=== PATIENT | female | born 1990 | race Caucasian/White ===

== ENCOUNTER 2024-11-13 12:13 | Emergency (ER) | payer MEDICAID, SELFPAY ==
[2024-11-13 12:14] VITALS: BP 128/90; PULSE 60; RESP 14; TEMP 36.4; O2SAT 98; BMI 19.3
[2024-11-13 13:00] VITALS: BP 119/101; PULSE 87; RESP 18; O2SAT 100
--- NOTE | 2024-11-13 13:12 | CT_ITS ---
EXAM: CT NECK WITH INTRAVENOUS CONTRAST CLINICAL INDICATION: Dysphagia TECHNIQUE: Helically acquired images were obtained of the neck with intravenous contrast. This CT exam was performed using one or more of the following dose reduction techniques: automated exposure control, adjustment of the mA and/or kV according to patient size, and/or use of iterative reconstruction technique. CONTRAST: IV 75mL [id number] COMPARISON: No relevant prior studies available. FINDINGS: NASOPHARYNX: Normal. SUPRAHYOID NECK: Mild tonsillar enlargement. No evidence of tonsillar abscess. INFRAHYOID NECK: Normal. The larynx, hypopharynx and supraglottis are unremarkable. SUBMANDIBULAR/PAROTID GLANDS: Salivary glands are normal in size. THYROID: Normal. No thyroid nodules or calcification. BONES/JOINTS: No suspicious lytic or blastic abnormality. SOFT TISSUES: Normal. VASCULATURE: No acute findings. LYMPH NODES: Normal. No lymphadenopathy. LUNG APICES: Unremarkable as visualized. CT/Soft Tissue Neck WITH Contrast IMPRESSION: Mild tonsillar enlargement. No evidence of tonsillar abscess. Electronically Signed: Mason Kennedy MD at 14:22 EST ,
--- NOTE | 2024-11-13 13:12 | EX.ED.DYSGE1 ---
HPI History of Present Illness Chief Complaint: Shortness of Breath Informant: patient Onset/Context/Timing Onset: Weeks (2) Context: Gradual Onset Timing: Continuous Quality: Like something is stuck in my throat Location: Throat Worsened by: Nothing Relieved by: Nothing Narrative Narrative: Patient presents with difficulty swallowing, cough, and sore throat. Patient states this has been getting worse over the past few weeks. Patient states he feels like there is something stuck in her throat. Patient states she has a history of a cyst on her thyroid. Patient states her primary care physician referred to the emergency department for further evaluation. Patient admits to a cough but denies any sputum production. Patient denies any fevers or chills. Patient admits to some nausea but denies any vomiting. Patient states she has a history of asthma but ran out of her inhaler. [facility] Medical History (Updated 11/13/24 @ 15:[address] Clifton Rogers, DO) Cyst of parathyroid Home Medications ?Medication ?Instructions ?Recorded ?Last Taken ?Type NK 11/13/24 Unknown History Allergy/AdvReac Type Severity Reaction Status Date / Time Sulfa (Sulfonamide Allergy Rash Verified 11/13/24 12:15 Antibiotics) Surgical History (Updated 11/13/24 @ 15:[address] Clifton Rogers, ) History of thoracic surgery Social History Smoking Status: Current every day smoker tobacco type: cigarettes ROS ROS ED Constitutional Constitutional ED: Denies chills or fever(s) Eyes Eyes: Denies blurry vision or change in vision ENT ENT ED: Reports sore throat; Denies rhinorrhea Cardiovascular Cardiovascular: Denies chest pain or palpitations Respiratory/Chest Respiratory/Chest: Denies cough or dyspnea Gastrointestinal Gastrointestinal: Reports nausea; Denies vomiting Genitourinary Genitourinary ED: Reports urinary frequency; Denies dysuria or hematuria Musculoskeletal Musculoskeletal: Denies back pain or neck pain Integumentary Denies abscess or rash Neurologic Neurologic: Reports headache(s); Denies weakness Allergic/Immunologic Allergic/Immunologic ED: Denies mouth swelling or urticaria EXAM Physical Exam Const Vital Signs: 11/13/24 12:14 11/13/24 12:24 Temperature 97.6 F L Temperature Source Temporal Pulse Rate 60 Respiratory Rate 14 Respiratory Effort Normal Non-Labored Respiratory Depth Normal Respiratory Pattern Normal Blood Pressure 128/90 H Blood Pressure Mean 102 Pulse Ox 98 Oxygen Delivery Method Room Air Positive well nourished and well developed General Appearance ED: well developed and NAD HEENT Reports moist mucous membranes HEENT Narrative: Oropharynx is clear. Airway is patent. There is no erythema, edema, or exudate. Neck supple and no JVD Chest Wall inspection of chest normal and palpation of chest normal Resp normal respiratory effort and clear to auscultation bilaterally Cardio regular rate and regular rhythm Extremity General Extremety ED: Negative for edema or tenderness General Extremity: Negative for edema Neuro oriented x3, CN's II-XII intact bilaterally and no sensory deficits noted Sensorium / Orientation: alert Motor Exam: strength 5/5 throughout Psych mental status grossly normal MDM MDM MDM Narrative Medical decision making narrative: Differential diagnosis includes esophageal obstruction, thyroglossal cyst, parapharyngeal mass, abscess, and electrolyte abnormality. CBC will be obtained to assess for leukocytosis and anemia. Basic metabolic profile will be obtained to assess for renal function and electrolyte abnormality. CT scan of soft tissue neck will be obtained to assess for parapharyngeal mass, abscess, or swelling. Lab Data Attestation: I reviewed the patient's lab results. Lab results narrative: CBC was reviewed and was within normal limits. Basic metabolic profile was reviewed. Potassium was slightly low at 3.4. The remainder is within normal limits. Treatment and Re-Evaluation :: Smoking cessation was discussed. Patient was advised of her findings. Patient was able to swallow Tylenol tablets. Patient was given a GI cocktail. Patient was feeling better on reevaluation. Patient was instructed to use [id number] Maalox or Mylanta as needed. Patient was instructed to follow-up with her primary care physician in 5 to 7 days. Patient was instructed to return if worse in any way. Patient understood and was agreeable with the plan. All questions were answered. Discharge Plan Triage Chief Complaint: Shortness of Breath Other Complaint: Sore Throat ED Provider: Clifton Rogers Dx/Rx/DC Orders Clinical Impression: Odynophagia, Cyst of thyroid Instructions: ED Dysphagia (Adult) Prescriptions: No Action NK Primary Care Provider: Care Physician,No Primary Referrals: Care Physician,No Primary [Primary Care Provider] - Activity Restrictions/Additional Instructions: Follow-up with your ENT surgeon in 5 to 7 days. You may use [id number] Maalox or Mylanta as needed. Print Language: French Disposition Disposition: Home, Self Care
[2024-11-13 13:40] LABS: Absolute Lymphocyte Count 2.26 X10^3/uL (0.83-4.51); Absolute Neutrophil Count 4.3 X10^3/uL (2.0-7.7); Basophil# 0.11 X10^3/uL; Basophil% 1.5 % (0-1); Eosinophil# 0.13 X10^3/uL; Eosinophils% 1.7 % (0-5); Hematocrit 37.6 % (37-47); Hemoglobin 12.5 g/dL (12.0-15.0); Lymphocyte # 2.26 X10^3/ul (0.83-4.51); Lymphocyte % 30.4 % (19-41); Mean Corp Hgb Conc 33.2 g/dL (32-36); Mean Corpuscular Hgb 31.4 pg (27.0-32.0); Mean Corpuscular Volume 94.5 fL (81-99); Monocyte# 0.57 X10^3/uL; Monocyte% 7.7 % (0-10); NRBC Flagged by Analyzer 0 % (0-5); Neutrophil # 4.34 X10^3/uL (2.7-7.7); Neutrophil % 58.4 % (47-70); Platelet Count 366 K/mm3 (150-450); RBC Distribution Width CV 12.9 % (11.6-14.6); RBC Distribution Width SD 44.2 fl (35.1-43.9); Red Blood Count 3.98 M/mm3 (4.2-5.4); White Blood Count 7.4 K/mm3 (4.4-11.0)
[2024-11-13 13:59] LABS: Anion Gap 4 (5-15); BUN 8 mg/dL (7-18); BUN/Creat Ratio 11.1 RATIO (10-20); Calcium,Total 9.4 mg/dL (8.5-10.1); Chloride 105 mmol/L (98-107); Creatinine, Serum 0.72 mg/dL (0.55-1.02); EST Glomerular Filtration Rate 100 mL/min (>60); Est Glom Filt Rate - Afr Amer 121 mL/min (>60); Estimated Creatinine Clearance 79.51 ml/min; Glucose 98 mg/dL (74-106); Potassium 3.4 mmol/L (3.5-5.1); Sodium Level 137 mmol/L (136-145)
[2024-11-13 14:00] VITALS: BP 93/80; PULSE 81; RESP 16; O2SAT 100
[2024-11-13] MEDS: Lidocaine 2% Viscous15 ML UDC 15 ML PO (14:42)
[2024-11-13] MEDS: Acetaminophen 500 MG Tablet 1000 MG PO (14:42)
[2024-11-13] MEDS: Mag Hydrox/Al Hydrox/Simeth 30 ML UDC PO (14:42)
[2024-11-13 15:53] VITALS: BP 111/78; PULSE 74; RESP 16; TEMP 36.8; O2SAT 99
== END 2024-11-13 15:54 | disposition home or self-care (01) ==
PROVIDERS: Emergency Provider Emergency Medicine; Visit Provider Emergency Medicine
DX: E04.1 Nontoxic single thyroid nodule (principal); F17.210 Nicotine dependence, cigarettes, uncomplicated
CPT/HCPCS: 70491; 80048; 85025; 99284; Q9967; A4216